=== PATIENT | female | born 1975 | race Caucasian/White ===

== ENCOUNTER → 2017-05-21 | Outpatient (CLI) | payer BC ==
--- NOTE | 2017-05-21 15:16 | MAMMOGRAPHY REPORT ---
BILATERAL FIRST EVER DIGITAL SCREENING MAMMOGRAM TOMOSYNTHESIS WITH CAD: 05/21/2017 CLINICAL HISTORY: Routine screening examination. TECHNIQUE: Breast tomosynthesis in addition to standard 2D mammography was performed. Current study was also evaluated with a Computer Aided Detection (CAD) system. COMPARISON: No prior exams were available for comparison. BREAST COMPOSITION: The tissue of both breasts is heterogeneously dense, which may obscure small mas ses. FINDINGS: There are possible clusters of microcalcifications in the upper outer posterior right jono st, and upper outer middle one third of the left breast, for which additional spot magnification view s are recommended. A 5 mm nodular asymmetry is seen in the superior posterior right breast on the ML O view only (tomosynthesis slice 32), for which additional spot compression tomosynthesis views and p ossibly ultrasound are recommended. No other suspicious mass, architectural distortion or cluster of microcalcifications is seen bilatera lly. IMPRESSION: ACR BI-RADS CATEGORY 0: INCOMPLETE EVALUATION: NEED ADDITIONAL IMAGING EVALUATION The possible clusters of microcalcifications in each breast, and nodular asymmetry in the superior po sterior right breast need additional imaging evaluation. The patient will be called to schedule an appointment. Approximately 10% of breast cancers are not detected with mammography. A negative mammographic report should not delay biopsy if a clinically suggestive mass is present. Shauna Cardenas M.D. ay/:05/21/2017 14:36:03 Knitter Helper: Dianne XIE)(Renetta), [facility] letter sent: Addl Imaging 0 BI-RADS Code: ACR BI-RADS Category 0: Incomplete Evaluation: Need Additional Imaging Evaluation
== END | disposition home or self-care (01) ==
LOC: C.MAMM 13:57
PROVIDERS: ATTEND Family Medicine
DX: Z12.31 Encounter for screening mammogram for malignant neoplasm of breast (principal); N64.89 Other specified disorders of breast

== ENCOUNTER → 2017-06-02 | Outpatient (CLI) | payer BC ==
--- NOTE | 2017-06-02 12:36 | MAMMOGRAPHY REPORT ---
BILATERAL DIGITAL DIAGNOSTIC MAMMOGRAM TOMOSYNTHESIS AND TARGETED RIGHT ULTRASOUND: 06/02/2017 CLINICAL HISTORY: 42-year-old woman called back from baseline screening mammogram for bilateral micro calcifications and a right breast asymmetry. Family history of breast cancer = 2 paternal aunts. TECHNIQUE: Spot magnification CC and ML views of each breast, spot compression 2-D and tomosynthesis right MLO views were obtained. COMPARISON: Comparison is made to exam dated: 05/21/2017 mammogram - [facility]. BREAST COMPOSITION: The tissue of both breasts is heterogeneously dense, which may obscure small mas ses. FINDINGS: Spot magnification views of the right breast demonstrate a tiny, 1 mm grouping of somewhat coarse calcification in the upper outer posterior breast. In the left breast, there is a loose group ing of 4-5 microcalcifications in the upper outer anterior breast, some of which demonstrate layering on the spot magnification MLO view, suggesting benign milk of calcium. The spot compression MLO vie w and corresponding tomosynthesis images in the superior posterior right breast demonstrate a persist ent 7.9 x 5.7 mm nodular asymmetry. No associated architectural distortion or calcification. Furthe r evaluation with ultrasound was performed. Targeted ultrasound was performed in the superior right breast. Scattered anechoic simple cysts and cyst clusters are identified. In particular, in the 11:00 periareolar right breast, there is an oval parallel circumscribed anechoic cyst measuring 4.2 x 1.9 x 4.6 mm. Another anechoic cyst is identif ied in the 11:00 right breast, 3 cm from the nipple, measuring 5.2 x 3.4 x 8.0 mm. Small cyst cluste rs are identified in the 3:00 periareolar right breast measuring 4.3 x 3.3 x 10.1 mm, and in the 9:00 right breast, 2 cm from the nipple, measuring 5.3 x 4.6 x 7.9 mm. No suspicious solid mass is ident ified. It is likely one of these cysts or cyst clusters correlates with the nodular mammographic asy mmetry. IMPRESSION: ACR-BI-RADS CATEGORY 3: PROBABLY BENIGN, TARGETED ULTRASOUND ACR-BI-RADS CATEGORY 3: PRO BABLY BENIGN 1. There are benign appearing somewhat coarse and grouped layering microcalcifications in both breas ts. Although these calcifications are probably benign, given that they were identified on a baseline exam, short interval follow-up bilateral diagnostic mammograms according spot magnification views is recommended to ensure stability in 6 months. 2. There is a persistent 7.9 x 5.7 mm nodular asymmetry in the superior posterior right breast on th e MLO view, likely correlating with one of several cysts and cyst clusters seen in the superior right breast on ultrasound. A short interval follow-up right diagnostic tomosynthesis mammogram and possi ble repeat ultrasound is recommended to ensure stability in 6 months. These results and recommendations were discussed with the patient at the time of the exam. Approximately 10% of breast cancers are not detected with mammography. A negative mammographic report should not delay biopsy if a clinically suggestive mass is present. Shauna Cardenas M.D. ay/:06/02/2017 09:11:00 Tack Driller: Barb XIE)(Renetta), [facility] letter sent: Follow Up Recommended 3 BI-RADS Code: ACR-BI-RADS Category 3: Probably Benign Ultrasound BI-RADS: ACR-BI-RADS Category 3: Pr obably Benign
== END | disposition home or self-care (01) ==
LOC: C.MAMM 08:00
PROVIDERS: ATTEND Family Medicine
DX: R92.0 Mammographic microcalcification found on diagnostic imaging of breast (principal); N64.89 Other specified disorders of breast; N60.01 Solitary cyst of right breast

== ENCOUNTER → 2017-12-01 | Outpatient (CLI) | payer BC ==
--- NOTE | 2017-12-02 07:48 | MAMMOGRAPHY REPORT ---
BILATERAL DIGITAL DIAGNOSTIC MAMMOGRAM TOMOSYNTHESIS WITH CAD AND TARGETED BILATERAL ULTRASOUND: 2017 CLINICAL HISTORY: 42-year-old woman presents for follow-up of calcifications in both breasts, and als o follow-up a right breast nodular asymmetry in the superior posterior breast on the MLO view. TECHNIQUE: Bilateral breast tomosynthesis in addition to standard 2D mammography was performed. Spot magnification CC and ML views of each breast were also performed. Current study was also evaluated with a Computer Aided Detection (CAD) system. COMPARISON: Comparison is made to exams dated: 06/02/2017 mammogram, 06/02/2017 ultrasound, and 017 mammogram - [facility]. BREAST COMPOSITION: The tissue of both breasts is heterogeneously dense, which may obscure small mas ses. FINDINGS: The previously observed nodular asymmetry in the superior posterior right breast on the MLO view is less prominent comparing to the 05/21/2017 mammogram and likely represented normal overlappin g fibroglandular tissue. The spot magnification views of the right breast demonstrate the small grou ping of microcalcifications in the upper outer quadrant are less conspicuous comparing to prior spot magnification views. The calcifications are also less well seen on the standard views suggesting the y could have represented milk of calcium. Nevertheless, a short interval follow-up right diagnostic mammogram including spot magnification views is recommended in 6 months to ensure stability. On the right CC view, there is a triangular nodular asymmetry versus partially circumscribed and obscured 11 mm mass in the middle one third of the breast, slightly medial to the sagittal plane of the nipple ( tomosynthesis slice 21/55). Further characterization with ultrasound was performed. There is a possible 6 mm partially circumscribed and obscured mass in the slightly medial left breast on the CC view (tomosynthesis slice 31/60). No associated architectural distortion or calcification . The spot magnification views of the left breast redemonstrate a loose grouping of amorphous micro calcifications in the upper outer middle one third of the breast. Some of the calcifications appear to demonstrate layering on the spot magnification ML view, suggesting benign milk of calcium. They a lso have a smudgy appearance in the CC projection. They are unchanged in number compared to the prio r spot magnification views but a another short interval follow-up is recommended to ensure longer sta bility. No other suspicious masses, asymmetries, calcifications or areas of architectural distortion are identified in the left breast. Targeted ultrasound was performed in each breast. In the 3:00 periareolar right breast, there is a l obulated cyst with multiple thin internal nonvascular septations versus a grouping of anechoic simple cysts measuring approximately 5.6 x 5.0 x 10.3 mm, and correlating with the mammographic finding. T his is benign. In the 12:00 periareolar left breast, there is a small complicated cysts versus small cyst cluster measuring 8.3 x 3.2 x 8.2 mm, correlating with the mammographic finding. This is also benign. IMPRESSION: ACR-BI-RADS CATEGORY 3: PROBABLY BENIGN, TARGETED ULTRASOUND ACR-BI-RADS CATEGORY 3: PRO BABLY BENIGN There are benign-appearing calcifications and masses in each breast, most likely representing fibrocy stic change. Another short interval follow-up bilateral diagnostic mammogram including spot magnific ation views is recommended to ensure longer stability of the calcifications. Asymmetries versus part ially circumscribed and obscured masses in each breast seen mammographically are thought to correlate with benign cysts on ultrasound. Overall, another short interval follow-up bilateral diagnostic sandra mogram and possible ultrasound is recommended in 6 months. These results and recommendations were discussed with the patient at the time of the exam. Approximately 10% of breast cancers are not detected with mammography. A negative mammographic report should not delay biopsy if a clinically suggestive mass is present. Shauna Cardenas M.D. ay/:12/01/2017 12:01:23 Tar Roofer: Dianne HERNANDEZ(Lisa)(M), [facility] letter sent: Follow Up Recommended 3 BI-RADS Code: ACR-BI-RADS Category 3: Probably Benign Ultrasound BI-RADS: ACR-BI-RADS Category 3: Pr obably Benign
== END | disposition home or self-care (01) ==
LOC: C.MAMM 08:03
PROVIDERS: ATTEND Family Medicine
DX: Z09 Encounter for follow-up examination after completed treatment for conditions other than malignant neoplasm (principal); R92.1 Mammographic calcification found on diagnostic imaging of breast; N63.10 Unspecified lump in the right breast, unspecified quadrant; N63.20 Unspecified lump in the left breast, unspecified quadrant

== ENCOUNTER 2024-04-11 07:47 | Observation (INO) ==
--- NOTE | 2024-04-11 08:06 | Emergency Department Note ---
ED Provider Note History of Present Illness Chief Complaint: Abdominal Pain Stated Complaint: R ABDOMINAL PAIN Time Seen by Provider: 04/11/24 07:51 49-year-old female who presents the emergency department with complaint of right lower quadrant abdominal pain. The patient reports that she had difficulty falling asleep last night, and did not realize that she had abdominal discomfort until she awoke this morning. The patient reports pain with any movement or walking. She denies any pain radiating to the left abdomen or back. The patient denies any nausea, fever or chills. The patient reports that her stools were somewhat loose yesterday, but did not notice any blood or mucus. The patient reports that she is perimenopausal with irregular periods. She denies any recent heavy bleeding. The patient denies any prior history of abdominal surgeries or GI issues. The patient denies any urinary symptoms or history of kidney stones. The patient rates her discomfort a 5 out of 10. Home Medications Medication Instructions Recorded Confirmed Type ibuprofen 200 mg tablet (Advil) 600 mg PO DIRECTED PRN 01/09/23 04/11/24 History PAIN/FEVER escitalopram oxalate 20 mg tablet 20 mg PO DAILY 04/11/24 04/11/24 History olmesartan 20 mg tablet 20 mg PO DAILY 04/11/24 04/11/24 History Allergies Allergy/AdvReac Type Severity Reaction Status Date / Time amoxicillin [From Augmentin] Allergy Unknown HAPPENED Verified 04/11/24 08:19 A CHILD clavulanic acid Allergy Unknown AUGMENTIN Verified 04/11/24 08:19 A CHILD Penicillins Allergy Unknown HAPPENED Verified 04/11/24 08:19 A CHILD BETALACTAMASEIN Allergy Unknown PER PT Uncoded 04/11/24 08:19 "HAVE NO IDEA WHAT THIS ALLERGY IS". Past Med/Surg History Problem List Acute appendicitis (Acute) Dermal nevus Changing skin lesion Medical History No significant past medical history Surgical History History of foot surgery Social History Smoking Status: Never smoker Preferred Language: Armenian Feels Safe at Home: Yes Physical Exam Vital Signs Vital Signs - 24 hr 08/11/24 07:49 04/11/24 09:20 04/11/24 10:51 Temperature 36.2 C L Temperature Source Temporal Artery Scan Pulse Rate 92 H Pulse Rate [Apical] Pulse Rate [Left Finger] 88 81 Pulse Rhythm Regular Pulse Rhythm [Apical] Pulse Rhythm [Left Finger] Regular Pulse Strength Normal Pulse Strength [Apical] Pulse Strength [Left Finger] Normal Respiratory Rate 20 16 18 Respiratory Effort / Characteristics Non-Labored Spontaneous Non-Labored Spontaneous Respiratory Depth Normal Normal Respiratory Pattern Regular Regular Blood Pressure 131/74 Blood Pressure [Left Arm] 122/76 124/82 Blood Pressure Mean 93 Blood Pressure Mean [Left Arm] 91 96 Blood Pressure Position Sitting Blood Pressure Position [Left Arm] Pulse Oximetry 98 98 98 Oxygen Delivery Method Room Air Oxygen Flow Rate Sepsis Recent Fever Within 48 Hours No Sepsis New/Unexplained Change in Mental Status No Sepsis Action Taken by Nursing No Action Required 04/11/24 12:41 Temperature 36.4 C L Temperature Source Temporal Artery Scan Pulse Rate Pulse Rate [Apical] 97 H Pulse Rate [Left Finger] Pulse Rhythm Pulse Rhythm [Apical] Regular Pulse Rhythm [Left Finger] Pulse Strength Pulse Strength [Apical] Normal Pulse Strength [Left Finger] Respiratory Rate 18 Respiratory Effort / Characteristics Non-Labored Spontaneous Respiratory Depth Normal Respiratory Pattern Regular Blood Pressure Blood Pressure [Left Arm] 146/87 H Blood Pressure Mean Blood Pressure Mean [Left Arm] 106 Blood Pressure Position Blood Pressure Position [Left Arm] Semi-fowlers Pulse Oximetry 95 Oxygen Delivery Method Oxymask Oxygen Flow Rate 6 Sepsis Recent Fever Within 48 Hours Sepsis New/Unexplained Change in Mental Status Sepsis Action Taken by Nursing CONSTITUTIONAL: Healthy and well nourished. Patient appears in mild discomfort. HEENT: No scleral icterus or conjunctival injection. RESPIRATORY: Clear to auscultation bilaterally with no wheezing, crackles, rhonchi or stridor. CARDIOVASCULAR: Regular rate and rhythm with no murmurs, rubs or gallops. GASTROINTESTINAL: Bowel sounds present in all quadrants. Examination shows a positive McBurney's point tenderness and Rovsing sign. No obvious subtle/obturator sign. Mild positive heeltap. Negative CVA tenderness. No abdominal rigidity, guarding or rebound. MUSCULOSKELETAL: Full range of motion of all joints without discomfort. INTEGUMENTARY: No rash or other significant dermatologic conditions noted. HEMATOLOGIC: No ecchymosis or petechiae. PSYCHIATRIC: Positive affect. NEUROLOGIC: No focal neurologic deficits noted. Course Course 3 and physical exam were performed. Nurses notes reviewed. Vital signs were reviewed and were normal. The patient refused any analgesics or antiemetics. IV access was established, and labs were drawn. The patient was hydrated with a liter normal saline. Review of labs shows a mildly elevated white count with neutrophilic shift and no bandemia. CMP shows an elevated random glucose and total bilirubin, otherwise remaining electrolytes, LFTs and lipase are normal. Serum was negative. Urinalysis does not show any hematuria or signs of infection. CT with IV contrast of the abdomen and pelvis is consistent with an acute appendicitis. Findings were discussed with Dr. Fuller, general surgeon on-call, who came to the emergency department. Because of a potential delay in OR management, the patient was ordered IV Zosyn. I also ordered IV morphine and Zofran for pain control. The patient had good pain control prior to transfer of care to Dr. Fuller for OR management. Administered Medications Sodium Chloride (Nss) 500 mls @ 80 mls/hr IV .Q6H15M ONE Stop: 04/11/24 16:52 Last Infusion: 04/11/24 14:00 Dose: Infused Documented By: Admin: 04/11/24 10:49 Dose: 80 mls/hr Documented By: HANNAH Morphine Sulfate (Morphine Sulfate 2 Mg/Ml Carp) 2 mg IV Q3H PRN PRN Reason: Pain (1,2,3,4,5) & Pre PT Stop: 04/25/24 14:39 Last Admin: 04/11/24 15:11 Dose: 2 mg Documented By: ROSIE Discontinued Medications Bupivacaine HCl/Epinephrine Bitart (Bupivacaine/Epinephrine 0.5% Mpf 1:200,000 30 Ml Vial) Confirm Administered Dose 30 ml .ROUTE .STK-MED ONE Stop: 04/11/24 11:32 Last Admin: 04/11/24 12:27 Dose: 25 ml Documented By: RYAN Sodium Chloride (Nss) 1,000 mls @ 999 mls/hr IV .Q1H1M STA Stop: 04/11/24 09:01 Last Infusion: 04/11/24 09:08 Dose: Infused Documented By: Admin: 04/11/24 08:07 Dose: 999 mls/hr Documented By: HANNAH Piperacillin Sod/Tazobactam Sod (Zosyn) 4.5 gm in 100 mls @ 200 mls/hr IV NOW ONE Stop: 04/11/24 11:02 Last Infusion: 04/11/24 14:00 Dose: Infused Documented By: Admin: 04/11/24 10:49 Dose: 200 mls/hr Documented By: HANNAH Ioversol (Optiray 320 100ml) 94 ml IV ONCE ONE Stop: 04/11/24 09:15 Last Admin: 04/11/24 09:16 Dose: 94 ml Documented By: JOE Ketorolac Tromethamine (Ketorolac Tromethamine 15 Mg/Ml Vial) 10 mg IV NOW ONE Stop: 04/11/24 08:38 Last Admin: 04/11/24 08:56 Dose: 10 mg Documented By: HANNAH Morphine Sulfate (Morphine Sulfate 4 Mg/Ml 1 Ml Carp\\Vial) 4 mg IV NOW STA Stop: 04/11/24 11:09 Last Admin: 04/11/24 11:12 Dose: 4 mg Documented By: FLY Ondansetron HCl (Ondansetron Inj 2 Mg/Ml 2 Ml Vial) 4 mg IV NOW STA Stop: 04/11/24 11:09 Last Admin: 04/11/24 11:15 Dose: 4 mg Documented By: FLY Medical Decision Making Medical Records Attestation: I reviewed the patient's medical records. Home Medications was personally reviewed by me Laboratory Data Attestation: I reviewed the patient's lab results. 04/11/24 08:05 04/11/24 08:05 Lab Results 04/11/24 04/11/24 Range/Units 08:05 09:26 WBC 13.17 H (4.8-10.8) K/ul RBC 4.56 (4.20-5.40) M/uL Hgb 13.1 (12.0-16.0) g/dl Hct 39.9 (37.0-47.0) % MCV 87.5 (80.0-100.0) fL MCH 28.7 (25.0-34.0) pg MCHC 32.8 (32.0-36.0) g/dL RDW Std Deviation 40.7 (36.4-46.3) fL RDW Coeff of Ted 12.7 (11.5-14.5) % Plt Count 353 (130-400) K/uL MPV 10.8 (9.4-12.4) fL Immature Gran % (Auto) 0.4 % Neut % (Auto) 89.4 % Lymph % (Auto) 5.8 % Leake % (Auto) 3.8 % Eos % (Auto) 0.1 % Baso % (Auto) 0.5 % Neut # (Auto) 11.79 H (1.40-6.50) K/uL Lymph # (Auto) 0.76 L (1.20-3.40) K/uL Leake # (Auto) 0.50 (0.11-0.59) K/uL Eos # (Auto) 0.01 (0.00-0.50) K/uL Baso # (Auto) 0.06 (0.00-0.20) K/uL Immature Gran # (Auto) 0.05 (0.01-0.20) K/uL Sodium 137 (136-145) mmol/L Potassium 3.8 (3.5-5.1) mmol/L Chloride 104 (98-107) mmol/L Carbon Dioxide 27 (21-32) mmol/L Anion Gap 6 (3-11) BUN 11 (6-23) mg/dl Creatinine 0.68 (0.6-1.2) mg/dl Est Cr Clr Drug Dosing 97.1 ml/min Est GFR ( Amer) 118.2 ml/min Est GFR (Non-Af Amer) 102.0 ml/min BUN/Creatinine Ratio 16.2 (10-20) Glucose 161 H (70-99(Fasting)) mg/dl Calcium 8.7 (8.6-10.3) mg/dl Total Bilirubin 1.4 H (0.2-1.0) mg/dl AST 15 (13-39) U/L ALT 7 (7-52) U/L Alkaline Phosphatase 71 (34-104) U/L Total Protein 6.7 (6.0-8.3) gm/dl Albumin 4.2 (3.4-5.0) gm/dl Globulin 2.5 (2.5-4.0) gm/dl Albumin/Globulin Ratio 1.7 (0.9-2) Lipase 16 (11-82) U/L HCG, Qual Negative (Negative) Urine Color Yellow Urine Appearance Clear (Clear) Urine pH 6.5 (4.5-7.5) Ur Specific [place] 1.024 (1.000-1.030) Urine Protein Negative (Negative) Urine Glucose (UA) 1+ H (Negative) Urine Ketones Trace H (Negative) Urine Blood Negative (Negative) Urine Nitrite Negative (Negative) Urine Bilirubin Negative (Negative) Urine Urobilinogen Negative (Negative) Ur Leukocyte Esterase Trace H (Negative) Urine WBC (Auto) 0-5 (0-5) /hpf Urine RBC (Auto) 0-2 (0-2) /hpf U Hyaline Cast (Auto) 0-2 (0-2) /lpf U Epithel Cells (Auto) 3-5 H (0-2) /hpf Urine Bacteria (Auto) None Seen (None Seen) Imaging Data Attestation: I personally reviewed and interpreted this imaging study as follows: My Impression: My interpretation of a CT with IV contrast of the abdomen and pelvis shows evidence for an acute appendicitis without evidence for obvious abscess or perforation. Radiologist report was also reviewed with concurrence. Radiologist's Impression: Abdomen/Pelvis CT 04/11/24 08:02 CT OF THE ABDOMEN AND PELVIS WITH CONTRAST CLINICAL HISTORY: Right lower quadrant abdominal pain. COMPARISON STUDY: None. TECHNIQUE: Following IV administration of 94 mL of Optiray, axial images of the abdomen and pelvis were obtained from the lung bases to the proximal femurs. Images were reviewed in the axial, sagittal, and coronal planes. IV contrast was administered without complication. Automated exposure control was utilized for the study. A dose lowering technique was utilized adhering to the principles of ALARA. CT DOSE: 964.53 mGy.cm FINDINGS: Lung bases are unremarkable. No pneumatosis, free air or portal venous gas is present. A 1.5 cm segment 7 hepatic lesion on image 48 of 353 may reflect a hemangioma given nodular peripheral enhancement. Subcentimeter hepatic lesions favor cysts., Adrenal glands, kidneys and pancreas are unremarkable. There is no biliary or pancreatic ductal dilatation. No hydronephrosis. There is no evidence for a bowel obstruction. There is somewhat high positioning of the cecum which is within the right mid abdomen. The appendix is mildly dilated, measuring 1.3 cm in caliber. There are multiple calculus within the appendix. There is moderate periappendiceal stranding. No free air or abscess is present. Major vasculature is patent. Several hemangiomas within the spine are incidentally noted. IMPRESSION: Findings consistent with acute appendicitis. Numerous appendicoliths within a dilated appendix with moderate periappendiceal inflammation. No free air or abscess. Somewhat high positioning of the cecum which is within the right mid abdomen. ACT 112: Negative or not required by law. Electronically signed by: Evan Sanders M.D. 04/11/2024 9:31 AM MDM Narrative See ED Course section for further details of today's visit. The patient presents with complaint of right lower quadrant pain that developed overnight. The patient reports worsening pain with movement, concerning for peritoneal signs. Clinical examination was concerning for appendicitis. CT imaging is consistent with an acute appendicitis. Patient does have a mild leukocytosis, otherwise no other concerning findings. Laboratory studies are not consistent with pancreatitis, cholecystitis, hepatitis or UTI. The patient is not . The case was discussed with Dr. Fuller, general surgeon on-call, who will perform a laparoscopic appendectomy. The patient was administered IV Zosyn, morphine and Zofran prior to transfer to the OR. Impression Acute appendicitis Discharge Plan Visit Data Chief Complaint: Abdominal Pain Stated Complaint: R ABDOMINAL PAIN ED Provider: Marley Talamantes ED Midlevel Provider: Silverio Oquendo Discharge Problem: Acute appendicitis Patient Disposition: Admitted As Inpatient Discharge Instructions Interventions: ED Discharge Assessment Last Done: 04/11/24 11:24
[2024-04-11] MEDS: SODIUM CHLORIDE 0.9% 1,000 ML IV STA (08:07)
[2024-04-11 08:35] LABS: Basophils # (auto) 0.06 K/uL (0.00-0.20); Basophils % (auto) 0.5 %; Eosinophils # (auto) 0.01 K/uL (0.00-0.50); Eosinophils % (auto) 0.1 %; Hematocrit (blood only) 39.9 % (37.0-47.0); Hemoglobin 13.1 g/dl (12.0-16.0); Immature Granulocytes # (auto) 0.05 K/uL (0.01-0.20); Immature Granulocytes % (auto) 0.4 %; Lymphocytes # (auto) 0.76 K/uL (1.20-3.40); Lymphocytes % (auto) 5.8 %; Mean Corpuscular Hemoglobin 28.7 pg (25.0-34.0); Mean Corpuscular Hgb Conc 32.8 g/dL (32.0-36.0); Mean Corpuscular Volume 87.5 fL (80.0-100.0); Mean Platelet Volume 10.8 fL (9.4-12.4); Monocytes % (auto) 3.8 %; Neutrophils # (auto) 11.79 K/uL (1.40-6.50); Neutrophils % (auto) 89.4 %; Platelet Count 353 K/uL (130-400); RDW Coefficient of Variation 12.7 % (11.5-14.5); RDW Standard Deviation 40.7 fL (36.4-46.3); Red Blood Count 4.56 M/uL (4.20-5.40); White Blood Count 13.17 K/ul (4.8-10.8)
[2024-04-11] MEDS: KETOROLAC TROMETHAMINE 15 MG/ML VIAL IV ONE (08:56)
[2024-04-11 09:00] LABS: Albumin Globulin Ratio 1.7 (0.9-2); Albumin Level 4.2 gm/dl (3.4-5.0); BUN Creatinine Ratio 16.2 (10-20); Bilirubin,Total 1.4 mg/dl (0.2-1.0); Calcium 8.7 mg/dl (8.6-10.3); Creatinine Clr Calc Pharmacy 97.1 ml/min; Est GFR (African American) 118.2 ml/min; Globulin 2.5 gm/dl (2.5-4.0); Potassium 3.8 mmol/L (3.5-5.1); Total Protein 6.7 gm/dl (6.0-8.3)
[2024-04-11 09:05] LABS: Pregnancy Test, Serum Negative (Negative)
[2024-04-11] MEDS: OPTIRAY 320 100ml IV ONE (09:16)
--- NOTE | 2024-04-11 09:33 | CT Scan Report ---
CT OF THE ABDOMEN AND PELVIS WITH CONTRAST CLINICAL HISTORY: Right lower quadrant abdominal pain. COMPARISON STUDY: None. TECHNIQUE: Following IV administration of 94 mL of Optiray, axial images of the abdomen and pelvis we re obtained from the lung bases to the proximal femurs. Images were reviewed in the axial, sagittal, and coronal planes. IV contrast was administered without complication. Automated exposure control wa s utilized for the study. A dose lowering technique was utilized adhering to the principles of ALARA . CT DOSE: 964.53 mGy.cm FINDINGS: Lung bases are unremarkable. No pneumatosis, free air or portal venous gas is present. A 1. 5 cm segment 7 hepatic lesion on image 48 of 353 may reflect a hemangioma given nodular peripheral en hancement. Subcentimeter hepatic lesions favor cysts., Adrenal glands, kidneys and pancreas are unrem arkable. There is no biliary or pancreatic ductal dilatation. No hydronephrosis. There is no evidence for a bowel obstruction. There is somewhat high positioning of the cecum which is within the right m id abdomen. The appendix is mildly dilated, measuring 1.3 cm in caliber. There are multiple calculus within the appendix. There is moderate periappendiceal stranding. No free air or abscess is present. Major vasculature is patent. Several hemangiomas within the spine are incidentally noted. IMPRESSION: Findings consistent with acute appendicitis. Numerous appendicoliths within a dilated ap pendix with moderate periappendiceal inflammation. No free air or abscess. Somewhat high positioning of the cecum which is within the right mid abdomen. ACT 112: Negative or not required by law. Electronically signed by: Evan Sanders M.D. 04/11/2024 9:31 AM
[2024-04-11 10:00] LABS: Appearance Urine Clear (Clear); Bacteria Urine Automated None Seen (None Seen); Bilirubin Urine Negative (Negative); Blood Urine Negative (Negative); Cast Urine Automated 0-2 /lpf (0-2); Color Urine Yellow; Glucose Urine UA 1+ (Negative); Ketones Urine Trace (Negative); Leukocyte Esterase Urine Trace (Negative); Nitrite Urine Negative (Negative); Protein Urine Negative (Negative); RBC Urine Automated 0-2 /hpf (0-2); Specific Gravity Urine 1.024 (1.000-1.030); Urobilinogen Urine Negative (Negative); WBC Urine Automated 0-5 /hpf (0-5); pH Urine 6.5 (4.5-7.5)
--- NOTE | 2024-04-11 10:43 | Anesthesiology Consultation ---
Date of Service April 11, 2024 Assessment & Plan Chart Review Chart Review: Acceptable Risk for Surgery and Patient NOT seen in Pre Admission Testing Consults Requested none ASA [id number] Proposed Anesthesia Anesthesia Type: General Risk / Benefits Reviewed With: PT / POA / Parent / Guardian, Accepts Plan and Informed Consent Obtained History Surgery Operation Date: 04/11/24 12:30 Proposed Procedures p Laparoscopic Appendectomy - Aaron Fuller MD Height/Weight Height: 5 ft 3 in Weight: 76.8 kg Allergies Allergy/AdvReac Type Severity Reaction Status Date / Time amoxicillin [From Augmentin] Allergy Unknown HAPPENED Verified 04/11/24 08:19 A CHILD clavulanic acid Allergy Unknown AUGMENTIN Verified 04/11/24 08:19 A CHILD Penicillins Allergy Unknown HAPPENED Verified 04/11/24 08:19 A CHILD BETALACTAMASEIN Allergy Unknown PER PT Uncoded 04/11/24 08:19 "HAVE NO IDEA WHAT THIS ALLERGY IS". Medications Home Medications Medication Instructions Recorded Confirmed Last Taken ibuprofen 200 mg tablet (Advil) 600 mg PO DIRECTED PRN 01/09/23 04/11/24 04/11/24 04:00 PAIN/FEVER escitalopram oxalate 20 mg tablet 20 mg PO DAILY 04/11/24 04/11/24 04/10/24 olmesartan 20 mg tablet 20 mg PO DAILY 04/11/24 04/11/24 04/10/24 Active Medications Generic Name Dose Route Start Last Admin Trade Name Freq PRN Reason Stop Dose Admin Sodium Chloride 500 mls @ 80 mls/hr 04/11/24 10:38 04/11/24 10:49 Nss IV 04/11/24 16:52 80 mls/hr .[id number] ONE Administration NPO Date Last Intake of Fluids: 04/11/24 Time Last Intake of Fluids: 04:30 Date Last Intake of Solids: 04/11/24 Time Last Intake of Solids: 04:30 Past Medical History Medical History No significant past medical history obese HTN Exercise / Class Metabolic Activity II 4-5 Yardwork/Stairs/Walk up hill Past Surgical History Surgical History (Updated 04/11/24 @ 08:04 by Silverio Oquendo) History of foot surgery Past Anesthesia History No Hx of Anesthesia Complications and No Family Hx of Anesthesia Complications History of PONV No Hx of PONV and No Hx of Motion Sickness Social History Smoking Status: Never smoker Physical Exam Vital Signs Last Vital Signs Temp 36.2 C L 04/11/24 07:49 Pulse 81 04/11/24 10:51 Resp 18 04/11/24 10:51 BP 124/82 04/11/24 10:51 Pulse Ox 98 04/11/24 10:51 O2 Del Method Room Air 04/11/24 07:49 Constitutional + obese; no acute distress ENMT Mouth: no dentition abnormality Thyromental Distance: < 3.5 Finger Breadths Mallampati Class: II Neck normal visual inspection and trachea midline; neck extension not limited Respiratory normal respiratory effort Auscultation: lungs clear to auscultation bilaterally Cardiovascular Rate/Rhythm: regular rate and regular rhythm Heart Sounds: no murmur Vessels: no carotid bruit Musculoskeletal Spine: normal cervical ROM and no pain with cervical ROM Extremities: full ROM of extremities Neurologic moves all extremities Motor/Sensory: no sensory deficit Psychiatric Orientation: alert and oriented x 3 Testing Laboratory Results 04/11/24 08:05 04/11/24 08:05 Urine Color Yellow 04/11/24 09:26 Urine Appearance Clear (Clear) 04/11/24 09:26 Urine pH 6.5 (4.5-7.5) 04/11/24 09:26 Ur Specific [place] 1.024 (1.000-1.030) 04/11/24 09:26 Urine Protein Negative (Negative) 04/11/24 09:26 Urine Glucose (UA) 1+ (Negative) H 04/11/24 09:26 Urine Ketones Trace (Negative) H 04/11/24 09:26 Urine Nitrite Negative (Negative) 04/11/24 09:26 Ur Leukocyte Esterase Trace (Negative) H 04/11/24 09:26 Urine WBC (Auto) 0-5 /hpf (0-5) 04/11/24 09:26 Urine RBC (Auto) 0-2 /hpf (0-2) 04/11/24 09:26 U Hyaline Cast (Auto) 0-2 /lpf (0-2) 04/11/24 09:26 U Epithel Cells (Auto) 3-5 /hpf (0-2) H 04/11/24 09:26 Urine Bacteria (Auto) None Seen (None Seen) 04/11/24 09:26 Electrocardiogram Date: 01/09/23 Findings: + NSR @ (@ 82) and + NSST changes
[2024-04-11] MEDS: PIPERACILLIN/TAZOBACTAM 4.5 GM/100 ML BAG IV ONE (10:49)
[2024-04-11] MEDS: SODIUM CHLORIDE 0.9% 500 ML IV ONE (10:49)
--- NOTE | 2024-04-11 11:00 | History & Physical Report ---
Date of Service April 11, 2024 Assessment & Plan (1) Acute appendicitis: Plan: 49-year-old woman with acute appendicitis. I discussed the risks and benefits of a laparoscopic appendectomy, possible open, with her and her family. All her questions were answered. We discussed the postoperative course and recovery. She is agreeable with the plan and consent has been obtained. Will take her to the operating room at the earliest convenience. she will be started on IV fluids and Zosyn. History of Present Illness Primary Care Provider: NO PCP 49-year-old woman presents with a 1 day history of diffuse abdominal pain localizing to the right side of her abdomen this morning. She did have nausea during the night. She denies fevers or chills. She ate half a banana in the middle of the night. She had some diarrhea last night but no bowel movement this morning. The pain has intensified and is worsening on the right. CT scan demonstrates acute appendicitis with inflammation and appendicoliths. Allergies Allergy/AdvReac Type Severity Reaction Status Date / Time amoxicillin [From Augmentin] Allergy Unknown HAPPENED Verified 04/11/24 08:19 A CHILD clavulanic acid Allergy Unknown AUGMENTIN Verified 04/11/24 08:19 A CHILD Penicillins Allergy Unknown HAPPENED Verified 04/11/24 08:19 A CHILD BETALACTAMASEIN Allergy Unknown PER PT Uncoded 04/11/24 08:19 "HAVE NO IDEA WHAT THIS ALLERGY IS". Home Medications Medication Instructions Recorded Confirmed Type ibuprofen 200 mg tablet (Advil) 600 mg PO DIRECTED PRN 01/09/23 04/11/24 History PAIN/FEVER escitalopram oxalate 20 mg tablet 20 mg PO DAILY 04/11/24 04/11/24 History olmesartan 20 mg tablet 20 mg PO DAILY 04/11/24 04/11/24 History Past Med/Surg History Problem List (Updated 04/11/24 @ 11:01 by Aaron Fuller MD) Acute appendicitis Dermal nevus Changing skin lesion Medical History No significant past medical history Surgical History History of foot surgery Social History Smoking Status: Never smoker Preferred Language: Frisian Feels Safe at Home: Yes Review of Systems Review of Systems: All systems reviewed & are unremarkable except as noted in HPI & below Physical Exam Constitutional: WD/WN, vitals as above Eyes: PERRL, conjunctivae normal, anicteric sclerae Neck: trachea midline, no thyromegaly Respiratory: normal respiratory effort; no respiratory distress and no labored breathing Cardiovascular: Rate/Rhythm: regular rate and regular rhythm Gastrointestinal (Abdomen): Inspection/Auscultation: abdomen normal to inspection; abdomen not distended Percussion/Palpation: + abdomen tender ( Right upper and lower quadrants) and abdomen soft; no guarding and abdomen not rigid positive Rovsing sign Skin: no rashes, warm and dry Psychiatric: A+Ox3, euthymic affect Results & Data Results & Data Vital Signs (Past 12 Hours) Vital Signs Temp Pulse Pulse Resp BP BP Pulse Ox 04/11/24 09:20 88 16 122/76 98 04/11/24 07:49 36.2 C L 92 H 20 131/74 98 O2 Del Method 04/11/24 09:20 04/11/24 07:49 Room Air Laboratory Results 04/11/24 04/11/24 Range/Units 09:26 08:05 WBC 13.17 H (4.8-10.8) K/ul RBC 4.56 (4.20-5.40) M/uL Hgb 13.1 (12.0-16.0) g/dl Hct 39.9 (37.0-47.0) % MCV 87.5 (80.0-100.0) fL MCH 28.7 (25.0-34.0) pg MCHC 32.8 (32.0-36.0) g/dL RDW Std Deviation 40.7 (36.4-46.3) fL RDW Coeff of Ted 12.7 (11.5-14.5) % Plt Count 353 (130-400) K/uL MPV 10.8 (9.4-12.4) fL Immature Gran % (Auto) 0.4 % Neut % (Auto) 89.4 % Lymph % (Auto) 5.8 % [place] % (Auto) 3.8 % Eos % (Auto) 0.1 % Baso % (Auto) 0.5 % Neut # (Auto) 11.79 H (1.40-6.50) K/uL Lymph # (Auto) 0.76 L (1.20-3.40) K/uL [place] # (Auto) 0.50 (0.11-0.59) K/uL Eos # (Auto) 0.01 (0.00-0.50) K/uL Baso # (Auto) 0.06 (0.00-0.20) K/uL Immature Gran # (Auto) 0.05 (0.01-0.20) K/uL Sodium 137 (136-145) mmol/L Potassium 3.8 (3.5-5.1) mmol/L Chloride 104 (98-107) mmol/L Carbon Dioxide 27 (21-32) mmol/L Anion Gap 6 (3-11) BUN 11 (6-23) mg/dl Creatinine 0.68 (0.6-1.2) mg/dl Est Cr Clr Drug Dosing 97.1 ml/min Est GFR ( Amer) 118.2 ml/min Est GFR (Non-Af Amer) 102.0 ml/min BUN/Creatinine Ratio 16.2 (10-20) Glucose 161 H (70-99(Fasting)) mg/dl Calcium 8.7 (8.6-10.3) mg/dl Total Bilirubin 1.4 H (0.2-1.0) mg/dl AST 15 (13-39) U/L ALT 7 (7-52) U/L Alkaline Phosphatase 71 (34-104) U/L Total Protein 6.7 (6.0-8.3) gm/dl Albumin 4.2 (3.4-5.0) gm/dl Globulin 2.5 (2.5-4.0) gm/dl Albumin/Globulin Ratio 1.7 (0.9-2) Lipase 16 (11-82) U/L HCG, Qual Negative (Negative) Urine Color Yellow Urine Appearance Clear (Clear) Urine pH 6.5 (4.5-7.5) Ur Specific [place] 1.024 (1.000-1.030) Urine Protein Negative (Negative) Urine Glucose (UA) 1+ H (Negative) Urine Ketones Trace H (Negative) Urine Blood Negative (Negative) Urine Nitrite Negative (Negative) Urine Bilirubin Negative (Negative) Urine Urobilinogen Negative (Negative) Ur Leukocyte Esterase Trace H (Negative) Urine WBC (Auto) 0-5 (0-5) /hpf Urine RBC (Auto) 0-2 (0-2) /hpf U Hyaline Cast (Auto) 0-2 (0-2) /lpf U Epithel Cells (Auto) 3-5 H (0-2) /hpf Urine Bacteria (Auto) None Seen (None Seen) Diagnostic Findings CT OF THE ABDOMEN AND PELVIS WITH CONTRAST CLINICAL HISTORY: Right lower quadrant abdominal pain. COMPARISON STUDY: None. TECHNIQUE: Following IV administration of 94 mL of Optiray, axial images of the abdomen and pelvis were obtained from the lung bases to the proximal femurs. Images were reviewed in the axial, sagittal, and coronal planes. IV contrast was administered without complication. Automated exposure control was utilized for the study. A dose lowering technique was utilized adhering to the principles of ALARA. CT DOSE: 964.53 mGy.cm FINDINGS: Lung bases are unremarkable. No pneumatosis, free air or portal venous gas is present. A 1.5 cm segment 7 hepatic lesion on image 48 of 353 may reflect a hemangioma given nodular peripheral enhancement. Subcentimeter hepatic lesions favor cysts., Adrenal glands, kidneys and pancreas are unremarkable. There is no biliary or pancreatic ductal dilatation. No hydronephrosis. There is no evidence for a bowel obstruction. There is somewhat high positioning of the cecum which is within the right mid abdomen. The appendix is mildly dilated, measuring 1.3 cm in caliber. There are multiple calculus within the appendix. There is moderate periappendiceal stranding. No free air or abscess is present. Major vasculature is patent. Several hemangiomas within the spine are incidentally noted. IMPRESSION: Findings consistent with acute appendicitis. Numerous appendicoliths within a dilated appendix with moderate periappendiceal inflammation. No free air or abscess. Somewhat high positioning of the cecum which is within the right mid abdomen. ACT 112: Negative or not required by law. Electronically signed by: Evan Sanders M.D. 04/11/2024 9:31 AM (1) Acute appendicitis Acute appendicitis type: with localized peritonitis Appendicitis gangrene presence: unspecified whether gangrene present Appendicitis perforation presence: unspecified whether perforation present Appendicitis abscess presence: without abscess Qualified Code(s): K35.30 - Acute appendicitis with localized peritonitis, without perforation or gangrene
[2024-04-11] MEDS: MoRPHine SULFATE 4 MG/ML 1 ML CARP\\VIAL IV STA (11:12)
[2024-04-11] MEDS: ONDANSETRON INJ 2 MG/ML 2 ML VIAL IV STA (11:15)
[2024-04-11] MEDS ORDERED: DEXAMETHASONE SOD INJ 4 MG/ML VIAL ONE (11:23)
[2024-04-11] MEDS ORDERED: fentaNYL citrate PF 100 MCG/2 ML VIAL ONE (11:23)
[2024-04-11] MEDS ORDERED: SUGAMMADEX SODIUM 200 MG/2 ML VIAL IV ONE (11:23)
[2024-04-11] MEDS ORDERED: PROPOFOL IV EMULSION 10 MG/ML 20 ML VIAL IV ONE (11:23)
[2024-04-11] MEDS ORDERED: SUCCINYLCHOLINE CHLORIDE 20 MG/ML 10 ML VIAL IV ONE (11:23)
[2024-04-11] MEDS ORDERED: ROCURONIUM BROMIDE 10 MG/ML 5 ML VIAL IV ONE (11:23)
[2024-04-11] MEDS ORDERED: MIDAZOLAM HCL 1 MG/ML 2ML VIAL ONE (11:23)
--- NOTE | 2024-04-11 11:42 | Anesthesiology Consultation ---
Date of Service April 11, 2024 History Surgery Operation Date: 04/11/24 12:30 Proposed Procedures p Laparoscopic Appendectomy - Aaron Fuller MD Height/Weight Height: 5 ft 3 in Weight: 76.8 kg Allergies Allergy/AdvReac Type Severity Reaction Status Date / Time amoxicillin [From Augmentin] Allergy Unknown HAPPENED Verified 04/11/24 08:19 A CHILD clavulanic acid Allergy Unknown AUGMENTIN Verified 04/11/24 08:19 A CHILD Penicillins Allergy Unknown HAPPENED Verified 04/11/24 08:19 A CHILD BETALACTAMASEIN Allergy Unknown PER PT Uncoded 04/11/24 08:19 "HAVE NO IDEA WHAT THIS ALLERGY IS". Medications Home Medications Medication Instructions Recorded Confirmed Last Taken ibuprofen 200 mg tablet (Advil) 600 mg PO DIRECTED PRN 01/09/23 04/11/24 04/11/24 04:00 PAIN/FEVER escitalopram oxalate 20 mg tablet 20 mg PO DAILY 04/11/24 04/11/24 04/10/24 olmesartan 20 mg tablet 20 mg PO DAILY 04/11/24 04/11/24 04/10/24 Active Medications Generic Name Dose Route Start Last Admin Trade Name Freq PRN Reason Stop Dose Admin Sodium Chloride 500 mls @ 80 mls/hr 04/11/24 10:38 04/11/24 10:49 Nss IV 04/11/24 16:52 80 mls/hr .Q6H15M ONE Administration NPO Date Last Intake of Fluids: 04/11/24 Time Last Intake of Fluids: 04:30 Date Last Intake of Solids: 04/11/24 Time Last Intake of Solids: 04:30 Past Medical History Medical History No significant past medical history obese HTN Exercise / Class Metabolic Activity II 4-5 Yardwork/Stairs/Walk up hill Past Surgical History Surgical History History of foot surgery Past Anesthesia History No Hx of Anesthesia Complications and No Family Hx of Anesthesia Complications History of PONV No Hx of PONV and No Hx of Motion Sickness Social History Smoking Status: Never smoker Physical Exam Vital Signs Last Vital Signs Temp 36.2 C L 08/11/24 07:49 Pulse 81 04/11/24 10:51 Resp 18 04/11/24 10:51 BP 124/82 04/11/24 10:51 Pulse Ox 98 04/11/24 10:51 O2 Del Method Room Air 04/11/24 07:49 Testing Laboratory Results 04/11/24 08:05 04/11/24 08:05 Urine Color Yellow 04/11/24 09:26 Urine Appearance Clear (Clear) 04/11/24 09:26 Urine pH 6.5 (4.5-7.5) 04/11/24 09:26 Ur Specific [place] 1.024 (1.000-1.030) 04/11/24 09:26 Urine Protein Negative (Negative) 04/11/24 09:26 Urine Glucose (UA) 1+ (Negative) H 04/11/24 09:26 Urine Ketones Trace (Negative) H 04/11/24 09:26 Urine Nitrite Negative (Negative) 04/11/24 09:26 Ur Leukocyte Esterase Trace (Negative) H 04/11/24 09:26 Urine WBC (Auto) 0-5 /hpf (0-5) 04/11/24 09:26 Urine RBC (Auto) 0-2 /hpf (0-2) 04/11/24 09:26 U Hyaline Cast (Auto) 0-2 /lpf (0-2) 04/11/24 09:26 U Epithel Cells (Auto) 3-5 /hpf (0-2) H 04/11/24 09:26 Urine Bacteria (Auto) None Seen (None Seen) 04/11/24 09:26
[2024-04-11] MEDS ORDERED: LABETALOL HCL IV 5 MG/ML 20ML IV PRN (11:44)
[2024-04-11] MEDS ORDERED: ePHEDrine sulfate 50 MG/ML AMP IV PRN (11:44)
[2024-04-11] MEDS ORDERED: NALOXONE HCL 0.4 MG/1 ML VIAL/CARP IV PRN (11:44)
[2024-04-11] MEDS ORDERED: fentaNYL citrate PF 100 MCG/2 ML VIAL IV PRN (11:44)
[2024-04-11] MEDS ORDERED: FLUMAZENIL 0.1 MG/1 ML 10 ML VIAL IV PRN (11:44)
[2024-04-11] MEDS ORDERED: ATROPINE SULFATE 0.1 MG/ML 10ML SYR IV PRN (11:44)
[2024-04-11] MEDS ORDERED: ONDANSETRON INJ 2 MG/ML 2 ML VIAL IV PRN ×2 (11:44→14:40)
[2024-04-11] MEDS ORDERED: HYDROmorphone INJ 1 MG/ML SYRINGE IV PRN (11:44)
[2024-04-11] MEDS ORDERED: PROMETHAZINE HCL 6.25 MG in SODIUM CHLORIDE 0.9% 50 ML IV PRN (11:44)
[2024-04-11] MEDS ORDERED: GLYCOPYRROLATE 0.2 MG/ML VIAL ONE (12:05)
[2024-04-11] MEDS: BUPIVACAINE/EPINEPHRINE 0.5% MPF 1:200,000 30 ML VIAL ONE (12:27)
--- NOTE | 2024-04-11 12:41 | Post Operative Brief Note ---
Immediate Post Op Note Date of Surgery April 11, 2024 Pre & Post Diagnosis Operation Date: 04/11/24 12:30 Pre-Op Diagnosis: Acute Appendicitis Post-Op Diagnosis: Acute Appendicitis I identified the patient and participated in the time-out.: Yes Procedure Operation Date: 04/11/24 12:30 Actual Procedures p Laparoscopic Appendectomy(Not Applicable) - Aaron Fuller MD Surgeon Aaron Fuller MD Marriage And Family Social Worker none Estimated Blood Loss 5 Findings Consistent with Post-Op Diagnosis
--- NOTE | 2024-04-11 12:43 | Operative Report ---
Post Operative Report Pre & Post Diagnosis Operation Date: 04/11/24 12:30 Pre-Op Diagnosis: Acute Appendicitis Post-Op Diagnosis: Acute Appendicitis I identified the patient and participated in the time-out.: Yes Procedure Operation Date: 04/11/24 12:30 Actual Procedures p Laparoscopic Appendectomy(Not Applicable) - Aaron Fuller MD Surgeon Aaron Fuller MD Microbial Specialist none Estimated Blood Loss 5 Findings Consistent with Post-Op Diagnosis Severely inflamed appendix, no perforation Specimens appendix Drains none Anesthesia Type General Complications none Description of Procedure the patient was taken to the operating room, and placed supine on the operating table. A timeout was performed, perioperative antibiotics were administered, SCD boots were placed. After adequate anesthesia and analgesia was obtained, the abdomen was prepped and draped in the normal sterile fashion. A 1 cm incision was made in the supraumbilical region and carried down to the level of the fascia. A trach hook was used to grasp the fascia and elevated and a varies needle was used to enter the abdominal cavity. The abdomen was insufflated to a pressure of 15 mmHg, and a 5 mm trocar was placed in this location. A 5 mm 30 degree laparoscope was placed into the abdominal cavity, and the abdomen was surveyed. The patient was placed in Trendelenburg and slightly to the left. One 5 mm trocar was placed in the right upper quadrant, and one 12 mm trocar was placed in the left lower quadrant under direct visualization. The right colon was identified and traced down to the cecum. The appendix was identified and elevated anteriorly and medially. A window was created at the base of the appendix with a [place] dissector. The Endo LAURENCE stapler was used to transect the appendix at its base through noninflamed tissue, and subsequently the mesoappendix. The appendix was placed in an Endo Catch bag, and removed via the left lower quadrant port site. Attention was turned to hemostasis, which was excellent. The abdomen was copiously irrigated and suctioned free, and again hemostasis was found to be excellent. All trochars removed under direct visualization. The abdomen was desufflated. The fascia in the 12 mm port site was closed with a 0 Vicryl suture. The skin was closed with a running 4-0 Monocryl subcuticular stitch. Dermabond was applied. The patient tolerated the procedure without complication, and was transferred in stable condition to the PACU. All instrument, needle, and sponge counts were correct at the end of the case. I performed the procedure. I attest to the content of the Intraoperative Record and any orders documented therein. Any exceptions are noted below.
--- NOTE | 2024-04-11 13:21 | Anesthesiology Progress Note ---
Date of Service April 11, 2024 Anesthesia Post Procedure Vital Signs Vital Signs: Temp Pulse Pulse Pulse Resp BP BP 04/11/24 13:10 88 13 122/74 04/11/24 13:00 85 12 126/66 04/11/24 12:50 91 H 12 128/86 04/11/24 12:41 36.4 C L 97 H 18 146/87 H 04/11/24 10:51 81 18 124/82 04/11/24 09:20 88 16 122/76 04/11/24 07:49 36.2 C L 92 H 20 131/74 Pulse Ox O2 Del Method O2 Flow Rate 04/11/24 13:10 97 Room Air 04/11/24 13:00 99 Room Air 04/11/24 12:50 99 Oxymask 3 04/11/24 12:41 95 Oxymask 6 04/11/24 10:51 98 04/11/24 09:20 98 04/11/24 07:49 98 Room Air Pain Intensity Abdomen: Pain Intensity: 7 Transfer of Care Handoff Completed per policy Notes Mental Status: alert / awake / arousable Patient Amnestic to Procedure: Yes Nausea / Vomiting: adequately controlled Pain: adequately controlled Airway Patency, RR, SpO2: stable & adequate BP & HR: stable & adequate Hydration State: stable & adequate Anesthetic Complications: no major complications apparent
[2024-04-11] MEDS ORDERED: diphenhydrAMINE Capsule 25 MG CAP PO PRN (14:40)
[2024-04-11] MEDS ORDERED: PROMETHAZINE 12.5 MG/50.5 ML BAG IV PRN (14:40)
[2024-04-11] MEDS: MoRPHine SULFATE 2 MG/ML CARP IV PRN (15:11)
[2024-04-11] MEDS: SODIUM CHLORIDE 0.9% 1,000 ML IV SCH (17:26)
[2024-04-11] MEDS: oxyCODONE/ACETAMINOPHEN 5mg/325mg TAB PO PRN (20:56)
[2024-04-11] MEDS: ENOXAPARIN INJ 40 MG/0.4 ML SYR SQ SCH (20:57)
[2024-04-11] MEDS: ESCITALOPRAM OXALATE 20 MG TAB PO SCH (20:57)
[2024-04-11] MEDS: LOSARTAN POTASSIUM 50 MG TAB PO SCH (20:57)
[2024-04-12 03:57] VITALS: RESP 18; O2SAT 97
[2024-04-12 07:14] VITALS: BP 109/71; TEMP 97.5
[2024-04-12] MEDS: KETOROLAC 30 MG/ML VIAL IV PRN (07:17)
--- NOTE | 2024-04-12 09:41 | Discharge Summary ---
Date of Service April 12, 2024 Admission HPI Per Admitting Provider 49-year-old woman presents with a 1 day history of diffuse abdominal pain localizing to the right side of her abdomen this morning. She did have nausea during the night. She denies fevers or chills. She ate half a banana in the middle of the night. She had some diarrhea last night but no bowel movement this morning. The pain has intensified and is worsening on the right. CT scan demonstrates acute appendicitis with inflammation and appendicoliths. Principal Diagnosis acute appendicitis Discharge Exam Constitutional WD/WN, vitals as above cooperative and comfortable; no acute distress and not ill appearing Respiratory normal respiratory effort; no respiratory distress and no labored breathing Gastrointestinal (Abdomen) Inspection/Auscultation: abdomen normal to inspection and + abdominal surgical incision (c/d/i with dermabond); abdomen not distended Percussion/Palpation: + abdomen tender (mild at incision sites appropriate postop) and abdomen soft; no guarding, abdomen not rigid and abdomen not firm Skin no rashes, warm and dry Psychiatric A+Ox3, euthymic affect Discharge Data Allergies Allergy/AdvReac Type Severity Reaction Status Date / Time amoxicillin [From Augmentin] Allergy Unknown HAPPENED Verified 04/11/24 08:19 A CHILD clavulanic acid Allergy Unknown AUGMENTIN Verified 04/11/24 08:19 A CHILD Penicillins Allergy Unknown HAPPENED Verified 04/11/24 08:19 A CHILD BETALACTAMASEIN Allergy Unknown PER PT Uncoded 04/11/24 08:19 "HAVE NO IDEA WHAT THIS ALLERGY IS". Consultations 04/11/24 09:44 ED Decision to Admit Stat Procedures Performed Operation Date: 04/11/24 12:30 Actual Procedures p Laparoscopic Appendectomy(Not Applicable) - Aaron Fuller MD Ordered Studies 04/11/24 08:02 CT abd pelvis IV con only Stat Hospital Course (1) Acute appendicitis: 49-year-old woman with acute appendicitis taken to operating room for laparoscopic appendectomy by Dr. Fuller on 04/11/2024. Patient found to have acute appendicitis without perforation or abscess. Patient tolerated procedure without difficulty and transferred to med/surg floor for postop care. Diet advanced as tolerated,activity as tolerated, pain management as needed. Patient was discharged home on POD # 1 in stable condition. Total Time Total Time Spent Total Time Spent (In Minutes): 20 minutes Total Time Includes: Examination of the Patient, Discharge Planning and Medication Reconciliation Discharge Plan Discharge Items Patient Disposition: Home - Self-Care Reason For Visit: abdominal pain Discharge Diagnosis: acute appendicitis Activity: Per Instructions section Non-emergency contact: Primary Care Provider and Surgeon Call non-emergency contact if: you have any medication questions, your pain is worsening, your pain is concerning for you, you have a fever, your temperature is above 101, your wound has increased redness, your wound has increased drainage and your wound pain has increased Follow-up/Referrals: Eloise Valencia PA-C [Physician Rn Private Duty] - PCP,NO [Primary Care Provider] - Diet: Regular Addtl Attending Provider Instructions: Post-Surgical ~Discharge Instructions Activity Recommendations: - lifting limitation: (20 pounds for 2 weeks), - exercise/sex/sports limit: (nonstrenuous for 2 weeks), - driving or machine use limit: (none for 1 week or until pain free and no longer taking narcotic pain medication), - Shower/bathe limit: (may shower , no submerging incisions underwater for 10-14 days) Diet: - Resume previous diet SPECIAL CARE INSTRUCTIONS: - May shower. Let water run over area and pat dry. - Leave surgical glue on incisions, this will fall off on its own. Do not pick at it. - Call the surgeon's office with any questions or concerns - - (ex. temperature higher than 101 degrees F, excessive bleeding or pain). MEDICATIONS: - Resume previous medications unless instructed otherwise by your surgeon. - May alternate extra strength Tylenol and Ibuprofen as needed for mild to moderate pain -650 mg Tylenol every 6 hours as needed - Ibuprofen 600 mg every 6 hours as needed (take with food) - Percocet 1 every 6 hours, as needed for moderate to severe pain - Recommend daily stool softener (Colace) while taking narcotic pain medication to prevent constipation or straining. Drink plenty of water daily. FOLLOW UP VISIT: - If not already scheduled, please call the office to schedule a two week follow-up appointment. Office number Pending Studies at Discharge: Yes (appendix pathology, will be reviewed at postop visit) Stand-Alone Forms: [employer], Work/School Release, Smoking Cessation Medications and DC Order Prescriptions: New oxycodone-acetaminophen 5-325 mg tablet 1 tab PO Q6H PRN (Reason: pain) Qty: 5 0RF Continued ibuprofen [Advil] 200 mg Tablet 600 mg PO DIRECTED PRN (Reason: PAIN/FEVER) olmesartan 20 mg tablet 20 mg PO DAILY escitalopram oxalate 20 mg tablet 20 mg PO DAILY Discharge Orders: Discharge Order (Routine); Ordered 04/12/24 Ordered By: Eloise Valencia Admission Data Admit Date/Time: 04/11/24 12:47 Attending Provider: Aaron Fuller Admit Provider: Aaron Fuller Primary Care Provider: PCP,NO Other Providers: Aaron Fuller
[2024-04-12 10:06] VITALS: PULSE 80
== END 2024-04-12 11:20 | disposition home or self-care (01) ==
LOC: ED 07:47 → OR 10:57 → 3N 10:57